=== PATIENT | female | born 1990 | race Caucasian/White ===

== ENCOUNTER 2017-05-11 16:35 | Emergency (ER) | payer SELFPAY ==
[~2017-05-11] VITALS: Ht 172.7 cm; Wt 81.0 kg
[~2017-05-11 16:35] MED LIST: PRENATAL
[2017-05-11] MEDS: KETOROLAC 30MG/ML VIAL IM ONE (17:41)
[2017-05-11 18:59] VITALS: BP 125/86
== END 2017-05-11 19:00 | disposition home or self-care (01) ==
LOC: ER 16:35
DX: S20.219A Contusion of unspecified front wall of thorax, initial encounter (principal); S70.02XA Contusion of left hip, initial encounter; F17.210 Nicotine dependence, cigarettes, uncomplicated; Z98.890 Other specified postprocedural states; V43.52XA Car driver injured in collision with other type car in traffic accident, initial encounter; Y93.89 Activity, other specified; Y92.488 Other paved roadways as the place of occurrence of the external cause
CPT/HCPCS: 71010; 96372; 99283; J1885

== ENCOUNTER 2018-01-19 05:51 | Emergency (ER) | payer SELFPAY ==
[~2018-01-19] VITALS: Ht 172.7 cm; Wt 91.0 kg
[2018-01-19 05:54] VITALS: BP 152/84
== END 2018-01-19 08:03 | disposition left against medical advice (07) ==
LOC: ER 05:51
DX: R51 Headache (principal); Z53.21 Procedure and treatment not carried out due to patient leaving prior to being seen by health care provider